=== PATIENT | female | born 1955 | race Caucasian/White ===

== ENCOUNTER 2021-09-17 10:42 | Outpatient (CLI) | payer MEDICARE ==
--- NOTE | 2021-09-17 17:51 | DEXA Report ---
PROCEDURE: Dexa Spine and/or Hip INDICATIONS: ASYMPTOMATIC MENOPAUSAL STATE TECHNIQUE: Dual energy x-ray absorptiometry (DXA) was performed on a [employer] System. Regions measur ed are the AP Spine, femoral neck, and if needed forearm. COMPARISON: None. FINDINGS: Lumbar Spine: Bone Mineral Density 1.218 g/cm/cm,T score 0.3. Left Hip: Bone Mineral Density 0.997 g/cm/cm,T score -0.1. Left Femoral Neck: Bone Mineral Density 0.964 g/cm/cm, T score -0.5. (T score greater or equal to -1.0: NORMAL) (T score from -1.1 to -2.4: OSTEOPENIA) (T score less than or equal to -2.5 to: OSTEOPOROSIS) Impression: Normal bone mineralization. Patients with diagnosis of osteoporosis or osteopenia should have regular bone mineral density assess ment. For those eligible for Medicare, routine testing is allowed once every 2 years. Testing frequ ency can be increased for patients who have rapidly progressing disease or for those who are receivin g medical therapy to restore bone mass. Reviewed by: Loyd Nolasco MD on 09/17/2021 5:50 PM PST Approved by: Loyd Nolasco MD on 09/17/2021 5:50 PM PST Station ID: [id number]
== END 2021-09-17 10:43 | disposition home or self-care (01) ==
LOC: DI 10:42
PROVIDERS: ATTEND Physician Assistant
DX: Z78.0 Asymptomatic menopausal state (principal)

== ENCOUNTER 2022-09-30 08:00 | Outpatient (CLI) | payer MEDICARE | END 2022-09-30 23:59 | disposition home or self-care (01) | LOC: LAB.N 08:00 | PROVIDERS: ATTEND Family Medicine | DX: R30.0 Dysuria (principal) | CPT/HCPCS: 87086; 87181 ==

== ENCOUNTER 2024-01-18 14:52 | Outpatient (CLI) | payer MEDICARE ==
--- NOTE | 2024-01-19 14:28 | XRAY Report ---
PROCEDURE: Cervical Spine 2-3V INDICATIONS: CERVICAL RADICULOPATHY TECHNIQUE: 3 view(s) of the cervical spine were acquired. COMPARISON: None available. FINDINGS: Bones: No fractures or dislocations to the T1 level. Trace anterolisthesis of C6 on C7. The lateral masses of C1 appear intact on the odontoid view. No suspicious bony lesions. Discectomy and anteri or fusion at C5-C6. Bilateral facet arthropathy, most pronounced and moderate at C3-C4 on the right, and C5-C6 and C6-C7 on the left. Soft tissues: No prevertebral soft tissue swelling. IMPRESSION: 1. Degenerative and postsurgical changes as described. With radiculopathy symptoms, consider further evaluation with MRI. Reviewed by: Casimiro Gooden MD on 01/19/2024 2:27 PM PDT Approved by: Casimiro Gooden MD on 01/19/2024 2:27 PM PDT Station ID: [id number]
== END 2024-01-18 14:53 | disposition home or self-care (01) ==
LOC: DI 14:52
PROVIDERS: ATTEND Registered Nurse
DX: M47.22 Other spondylosis with radiculopathy, cervical region (principal); Z98.1 Arthrodesis status

== ENCOUNTER 2024-02-09 10:04 | Outpatient (CLI) | payer MEDICARE ==
--- NOTE | 2024-02-09 19:08 | MRI Report ---
PROCEDURE: Cervical Spine WO INDICATIONS: CERVICAL RADICULOPATHY TECHNIQUE: Noncontrast sagittal T1 spin echo and T2 fast spin echo, sagittal STIR, foraminal oblique sagittal T2 fast spin echo, and axial gradient echo or T2 fast spin echo through the cervical spine. COMPARISON: Radiographs dated 01/18/2024. FINDINGS: Image quality: Diagnostic. Alignment and Curvature: There is normal bony alignment. Bone Marrow: Marrow demonstrates normal overall signal. Postoperative changes of anterior cervical discectomy and fusion at C5-6. Spinal Cord: Visualized spinal cord has normal size and signal. No cerebellar tonsillar herniation. Paraspinous Soft Tissues: No paravertebral masses. Prevertebral soft tissues are normal in thicknes s. C2-C3: No significant neuroforaminal stenosis or spinal canal stenosis. C3-C4: Bilateral uncovertebral osteoarthrosis. Moderate broad-based posterior disc osteophyte compl ex which causes effacement anterior thecal sac. There is mild right and mild-moderate left bilateral neuroforaminal stenosis and mild spinal canal stenosis. C4-C5: Bilateral facet arthropathy. Mild bilateral uncovertebral osteoarthrosis. Shallow broad-based posterior disc osteophyte complex. There is mild spinal canal stenosis. There is mild right and mild -moderate left bilateral neuroforaminal stenosis. No cord signal abnormalities. C5-C6: Bilateral facet arthropathy. Postoperative changes of fusion and discectomy at C5-6. No signi ficant spinal canal stenosis. Minimal right and mild left bilateral neuroforaminal stenosis. C6-C7: Mild bilateral facet arthropathy. Shallow broad-based posterior disc osteophyte complex. No s ignificant spinal canal stenosis. No cord signal abnormalities. No significant right and minimal left bilateral neuroforaminal stenosis. C7-T1: No significant neuroforaminal stenosis or spinal canal stenosis. IMPRESSION: Cervical spine without acute abnormalities. Multilevel, multifactorial cervical spondylosis as described above by vertebral body level. Findings are most pronounced at C3-4 and C4-5. Status post anterior cervical discectomy and fusion at C5-6. Reviewed by: Carlos Durham MD on 02/09/2024 7:06 PM PDT Approved by: Carlos Durham MD on 02/09/2024 7:06 PM PDT Station ID: [id number]
== END 2024-02-09 10:05 | disposition home or self-care (01) ==
LOC: DI 10:04
PROVIDERS: ATTEND Registered Nurse
DX: M47.22 Other spondylosis with radiculopathy, cervical region (principal); Z98.1 Arthrodesis status